=== PATIENT | male | born 1980 | race Caucasian/White ===

== ENCOUNTER 2024-11-06 06:07 | Day surgery (SDC) | payer BC, SELFPAY ==
[2024-11-01 14:44] VITALS: BMI 25.5
[2024-11-06 06:25] VITALS: BP 143/93; PULSE 86; RESP 16; TEMP 36.8; O2SAT 99
[2024-11-06] MEDS: LACTATED RINGERS 1000ML 1,000 ML 25 ML IV (06:36)
--- NOTE | 2024-11-06 06:48 | EXP.ANES.CKL ---
[facility] Disclaimer: The information contained in this section may have been updated after the patient was seen, as this information can be updated by other users. Medical History PSC (primary sclerosing cholangitis) Liver transplant candidate Surgical History History of liver biopsy History of tonsillectomy Hx of cholecystectomy S/P TIPS (transjugular intrahepatic portosystemic shunt) Family History Other No significant family history Social History (Updated 11/06/24 @ 06:26 by Ysabel Landon RN) Smoking Status: Never smoker alcohol intake: never substance use type: denies use current occupational status: employed Travel in the last 8 weeks: None caffeine: Yes [facility] Anesthesia Checklist Patient Identification Patient Identification: Arm Band and Family Structural Data Admitted From: Home Planned Operative Procedure/s: Colonoscopy Consent for Planned Operative Procedure(s) Verified: Yes Verified Documents: Surgical Consent and History and Physical NPO Status Verified Time NPO: 00:00 Additional verifications Patient : No Anesthesia Reactions: No Hx Blood Transfusions: No Blood Transfusion Reaction: No Cephalosporin Allergy: No Previous Colonoscopy: Yes Airway Assessment Mallampati Score:: Class II C-Spine Mobility Assessed: Yes TMJ Mobility Assessed: Yes Dentition: Good Dentition Neurological Assessment Level of Consciousness: Awake, Alert, Appropriate and Follows Commands Hx Seizures: No Numbness or tingling in extremities: No Anesthesia Plan Anesthesia Risk discussed: Yes ASA Class: II Anesthesia Type: MAC Preoperative Comments Pre-Operative Comments: Ulcerative colitis
--- NOTE | 2024-11-06 07:24 | EXP.HP ---
History of Present Illness *Admission Date: 11/06/24 *Reason for visit:: Surveillance/screening *History of present illness: Mr. Benavidez is a 44-year-old gentleman who is here for surveillance colonoscopy secondary to a long history of ulcerative colitis for over 20 years. The examination is deemed medically necessary for surveillance. The patient has been seen, interviewed and examined prior to the procedure by both myself and the anesthesia provider. [facility] Disclaimer: The information contained in this section may have been updated after the patient was seen, as this information can be updated by other users. Medical History (Updated 11/06/24 @ 07:27 by Jony Vera II, MD) PSC (primary sclerosing cholangitis) Liver transplant candidate Surgical History History of liver biopsy History of tonsillectomy Hx of cholecystectomy S/P TIPS (transjugular intrahepatic portosystemic shunt) Family History Other No significant family history Social History (Updated 11/06/24 @ 06:51 by Juan Thomas CRNA) Smoking Status: Never smoker alcohol intake: never substance use type: denies use current occupational status: employed Travel in the last 8 weeks: None caffeine: Yes Review of Systems Review of Systems Review of systems (narrative): Negative *Cardiovascular Comments: Negative *Gastrointestinal Comments: Negative *Genitourinary Comments: Negative *Musculoskeletal Comments: Negative *Neurologic Comments: Negative Meds Home Medications and Allergies Home Medications ?Medication ?Instructions ?Recorded ?Confirmed ?Type [id number] 140 gram-sod sulfate 9 See Rx Instructions PO .COMPLEX #3 10/29/24 Rx gram-NaCl 5.2gram-KCl-C oral pwdr ea packs (Plenvu) budesonide 3 mg 3 mg PO DAILY 11/06/24 11/06/24 History capsule,delayed,extended release rifaximin 550 mg tablet (Xifaxan) 550 mg PO DAILY 11/06/24 11/06/24 History spironolactone 100 mg tablet 100 mg PO DAILY 11/06/24 11/06/24 History ursodiol 500 mg tablet 500 mg PO BID 11/06/24 11/06/24 History New Prescriptions to Start Prescriptions: Allergies Allergy/AdvReac Type Severity Reaction Status Date / Time infliximab (From Remicade) Allergy Unknown Verified 11/06/24 07:14 allergy reaction Exam Data for Last 24 hours Vital signs and Labs for Last 24 Hours: Temp Pulse Resp BP Pulse Ox O2 Del Method 98.2 F 86 16 143/93 H 99 Room Air 11/06/24 06:25 11/06/24 06:25 11/06/24 06:25 11/06/24 06:25 11/06/24 06:25 11/06/24 06:25 *Routine HEENT Exam Head: Present normocephalic Eye: Present EOMI and PERRL ENT: Present mucous membranes moist *Routine Neck Exam Neck: Present supple *Routine Respiratory Exam Respiratory: Present CTA bilaterally *Routine Cardiovascular Exam Cardiovascular: Present RRR *Routine Abdominal Exam Abdominal: Present soft and normoactive bowel sounds; Absent tenderness *Routine Rectal Exam Rectal:: deferred *Routine Genitalia Exam Genitalia:: deferred *Routine Extremities Exam Extremities: Absent cyanosis, clubbing or edema *Routine Skin Exam Skin: Present warm; Absent rash *Routine Neurological Exam Neurological: Present alert and oriented X3 Assessment and Plan *Assessment and plan (1) Chronic ulcerative colitis: Status: Acute Category: Medical Code(s): K51.90 - Ulcerative colitis, unspecified, without complications (2) Advanced hepatic fibrosis: Status: Acute Category: Medical Code(s): K74.02 - Hepatic fibrosis, advanced fibrosis Plan A/P: 1. Long history of ulcerative colitis for more than 20 years is the preprocedural diagnosis. The patient will be anesthetized/sedated using MAC sedation. The patient has been seen and examined. Cardiac and lung assessment prior to the examination is stable. Proceed with planned surveillance colonoscopy
[2024-11-06 07:29] VITALS: O2SAT 100
--- NOTE | 2024-11-06 07:35 | HMH.PROCNOTE ---
[facility] Procedure Note Date: 11/06/24 Time: 08:04 Procedure Note:: Colonoscopy Procedure Report: Colonoscopy with cold biopsies Endoscopist: Jony Vera II, MD Referring physician: Jeny Way PA-C [facility] [address] [facility] [place] [address] Date of Procedure: November 06, 2024 Equipment: Olympus 190 variable stiffness pediatric colonoscope Sedation: MAC sedation Indication: Mr. Benavidez is a 44-year-old gentleman with longstanding chronic ulcerative pancolitis. He has had this for more than 25 years. He is on an annual surveillance interval. Last colonoscopy was 2022. The patient does have a history of primary sclerosing cholangitis/pericholangitis with cirrhosis which is well compensated. He does have a positive p-ANCA. In 2007, he did have small bowel variceal bleed that was massive and had TIPS placement. The patient presently is on Entocort 3 mg daily for maintenance of remission. He reports no abdominal pain, weight loss, rectal bleeding, change in bowel habits or family history of colon cancer. Procedure: Prior to the procedure, a history and physical exam was performed, and patient's medications and allergies were reviewed. The risks, benefits and alternatives of the sedation and procedure were discussed with the patient. All questions were answered and informed consent was obtained. The patient was brought to the procedure room. Patient identification and proposed procedure were verified by the physician and the nurse. The patient was placed in a left lateral decubitus position and the scope was passed under direct vision. Throughout the procedure, the patient's blood pressure, pulse, and oxygen saturations were monitored continuously. The colonoscopy was accomplished without difficulty. The patient tolerated the procedure well. Findings: On digital rectal examination there was normal rectal tone. There were no external hemorrhoids. The scope was then inserted through the anal canal into the rectum and advanced to the cecum. The ileocecal valve and appendiceal orifice were identified. The scope was advanced a short distance into the terminal ileum which appeared grossly normal. The scope was then withdrawn into the colon. There were patchy areas of mucosal granularity and these areas were examined closely with narrowband imaging. Directed biopsies were taken of this patchy mucosal granularity and raised pseudopolyps and biopsies were taken from the ascending, transverse, descending, sigmoid and rectosigmoid. There were areas of mucosal fibrosis. There were at least 2 areas where there was submucosal subepithelial spot ink tattoo and these were also examined very carefully. There were a few small pseudopolyps. There was no evidence of any erosion, ulceration or spontaneous bleeding. There were some skip areas where the vascular pattern appeared relatively normal and then other areas where there was grainy and granular mucosa. The findings were most consistent with burned-out and mildly smoldering chronic ulcerative colitis with mucosal fibrosis. Upon retroflexion within the rectum there were grade 1-2 internal hemorrhoids. Impression: 1. Burned-out chronic ulcerative pancolitis primarily in mucosal remission with some mucosal fibrosis, pseudopolyps and areas of granular mucosa?NBI and directed biopsies taken Plan: I will follow-up the biopsies and recommend annual close surveillance based on his longstanding history. He has never had biopsies showing dysplasia to my knowledge. For several years, he is at surveillance with [facility] at the [facility].
[2024-11-06 08:01] VITALS: BP 117/74; PULSE 81; RESP 20; TEMP 36.1; O2SAT 99
[2024-11-06 08:11] VITALS: BP 112/69; PULSE 67; RESP 18; O2SAT 97
[2024-11-06 08:21] VITALS: BP 110/69; PULSE 74; RESP 20; O2SAT 98
[2024-11-06 08:42] VITALS: BP 116/85; PULSE 84; RESP 18; O2SAT 99
== END 2024-11-06 08:42 | disposition home or self-care (01) ==
PROVIDERS: Visit Provider Internal Medicine Gastroenterology
PROC: (CPT 45380; principal; 2024-11-06 07:30)
DX: K51.90 Ulcerative colitis, unspecified, without complications (principal); K74.02 Hepatic fibrosis, advanced fibrosis; Z12.11 Encounter for screening for malignant neoplasm of colon; K64.8 Other hemorrhoids; K51.40 Inflammatory polyps of colon without complications
CPT/HCPCS: 45380; J2704; J7120